=== PATIENT | male | born 1965 | race Caucasian/White ===

== ENCOUNTER 2018-07-06 00:55 | Inpatient (IN) | payer BC ==
[~2018-07-06] VITALS: Ht 190.5 cm; Wt 107.0 kg
[2018-07-06] VITALS (12 sets, daily range): BP systolic 129–153; BP diastolic 75–95
[~2018-07-06 00:55] MED LIST: ACET500T68 PO; PEDI1TAB5 PO
[2018-07-06] MEDS ORDERED: FAMOTIDINE 20 MG TAB PO ONE (08:10)
[2018-07-06] MEDS ORDERED: MIDAZOLAM 2 MG/2 ML VIAL IVP PRN (08:10)
[2018-07-06] MEDS ORDERED: NORMOSOL R SOLN(*) 1000 ML BAG 1,000 ML IV PRN (08:10)
[2018-07-06] MEDS ORDERED: LIDOCAINE/SOD BICARB 8.4% SYR ID ONE (08:10)
[2018-07-06] MEDS ORDERED: fentaNYL CITR 250 MCG/5 ML AMP ONE (08:14)
[2018-07-06] MEDS ORDERED: ONDANSETRON 4 MG/2 ML VIAL ONE (08:15)
[2018-07-06] MEDS ORDERED: DEXAMETHASONE SOD PHOS 10MG/ML ONE (08:15)
[2018-07-06] MEDS ORDERED: LIDOCAINE MPF 1% 5 ML VIAL ONE (08:15)
[2018-07-06] MEDS ORDERED: PROPOFOL EMUL(*) 10MG/ML 20 ML 20 ML ONE (08:15)
[2018-07-06] MEDS ORDERED: KETAMINE HCL 200 MG/20 ML MDV ONE (08:16)
[2018-07-06 08:30] LABS: PLATELET COUNT, AUTOMATED 246 K/uL (150-450)
[2018-07-06] MEDS ORDERED: HALOPERIDOL LACT 5 MG/ML VIAL IM ONE (08:44)
[2018-07-06] MEDS ORDERED: ceFAZolin(*) 2GM/D5W 50ML 50 ML IVPB ONE (08:50)
[2018-07-06] MEDS ORDERED: SUGAMMADEX SOD 200 MG/2 ML SDV ONE (08:57)
[2018-07-06] MEDS ORDERED: PROPOFOL(*)1000 MG/100 ML VIAL 100 ML ONE (09:06)
[2018-07-06] MEDS ORDERED: REMIFENTANIL HCL 1 MG VIAL ONE ×4 (09:06→12:47)
[2018-07-06] MEDS ORDERED: BACITRACIN OINT 15 GM TUBE TP ONE (09:33)
[2018-07-06] MEDS ORDERED: LIDO/EPI 1% MDV 1:100,000 20ML INFIL ONE ×2 (09:34→10:36)
[2018-07-06] MEDS ORDERED: ROCURONIUM BROM 10 MG/ML 10 ML ONE (09:55)
[2018-07-06] MEDS ORDERED: HYDROmorphone HCL 2 MG/ML SDV ONE ×2 (10:19→13:39)
[2018-07-06] MEDS ORDERED: OXYMETAZOLINE SPRAY 15 ML BTL ONE ×2 (10:26→10:28)
[2018-07-06] MEDS ORDERED: PROPOFOL EMUL(*) 10MG/ML 20 ML 40 ML ONE (11:26)
[2018-07-06] MEDS ORDERED: ACETAMINOPHEN 325 MG TAB PO PRN (13:20)
--- NOTE | 2018-07-06 13:20 | Post Operative Note ---
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 direct laryngoscopy and biopsy left base of tongue 2. bilateral tonsillectomy 3. left selective neck dissection, levels II - IV Specimen Removed:(Maybe N/A): 1. base of tongue biopsy 2. bilateral tonsils 3. left selective neck dissection, levels II -IV Complications: none Fluids Estimated Blood Loss: 250 ml JAYNE HSU JR, MD Jul 06, 2018 13:20
[2018-07-06] MEDS ORDERED: fentaNYL CITR 100 MCG/2 ML AMP ONE ×2 (13:38→13:53)
[2018-07-06] MEDS: ONDANSETRON 4 MG ODT TABDP SL PRN ×2 (15:22→21:06)
[2018-07-06] MEDS: LR(*) 1000 ML BAG 1,000 ML IV PRN (15:24)
[2018-07-06] MEDS: MORPHINE 2 MG/ML SYR IVP PRN ×2 (16:16→21:07)
[2018-07-06] MEDS: LIDOCAINE 2% VISC SLN 15ML UDC PO PRN (16:41)
[2018-07-06] MEDS: PROMETHAZINE 25 MG/ML 1 ML AMP IVP PRN (17:17)
[2018-07-06] MEDS: ceFAZolin(*) 1 GM VIAL 1 GM in NS(*) 0.9% 100 ML ADDVANT BAG 100 ML IVPB SCH (17:46)
[2018-07-06] MEDS: BACITRACIN/POLYMY B OINT 15 GM TP SCH (21:09)
[2018-07-07] VITALS (7 sets, daily range): BP systolic 133–146; BP diastolic 68–89; Ht 190.5 cm; Wt 107.0 kg
[2018-07-07] MEDS: ceFAZolin(*) 1 GM VIAL 1 GM in NS(*) 0.9% 100 ML ADDVANT BAG 100 ML IVPB SCH ×3 (02:19→18:14)
[2018-07-07] MEDS: LR(*) 1000 ML BAG 1,000 ML IV PRN (02:19)
[2018-07-07] MEDS: ONDANSETRON 4 MG ODT TABDP SL PRN ×2 (07:55→18:56)
[2018-07-07] MEDS: BACITRACIN/POLYMY B OINT 15 GM TP SCH ×2 (09:19→20:17)
--- NOTE | 2018-07-07 09:38 | ENT Progress Note ---
Subjective Progress Notes Subjective Patient POD #1 s/p tonsillectomy, DL, left SND. Nausea overnight. Doing better this am. Aislinn clears. Physical Exam Vital Signs Date Time Temp Pulse Resp B/P (MAP) Pulse Ox O2 Delivery O2 Flow Rate FiO2 07/07/18 08:02 91 Room Air 07/07/18 07:10 98.7 65 18 134/68 (90) 2.0 Intake and Output 07/07/18 06:58 Intake Total 4883 ml Output Total 3590 ml Balance 1293 ml Intake Oral 750 ml IV Total 4133 ml Output Urine Total 2150 ml Emesis 1100 ml Drainage Total 65 ml Estimated Blood Loss 250 ml Other 25 ml # Voids 4 # Emeses 1 General Appearance: Alert, No Acute Distress Neuro: Other (CN 7, XI intact) ENT: Moist Mucous Membranes, Other (no bleed) Neck: Other (sutures intact, TANISHA with ss output, no collection) Result Diagram: 07/06/18 0826 Assessment and Plan Problems: (1) 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 Saline lock IV. Cont. abx. OOB. Plan discharge home tomorrow. Time Spent: < 30 min Exam Sepsis Risk: No Definite Risk JAYNE HSU JR, MD Jul 07, 2018 09:38
[2018-07-07] MEDS: LIDOCAINE 2% VISC SLN 15ML UDC PO PRN (14:41)
--- NOTE | 2018-07-07 15:50 | OPERATIVE REPORT 1 ---
EVENT DATE: July 06, 2018 SURGEON: Jason Sahni MD ANESTHESIOLOGIST: Kade Barone MD ANESTHESIA: TIVA ASSEMBLER ARRANGER: Kennedi Adorno PROCEDURES PERFORMED 1. Direct laryngoscopy with biopsy of left tongue base. 2. Bilateral tonsillectomy. 3. Left selective neck dissection levels 2 through 4. PREOPERATIVE DIAGNOSES 1. Squamous cell carcinoma metastatic to the neck with unknown primary. 2. Abnormal PET scan of the head and neck. POSTOPERATIVE DIAGNOSES 1. Squamous cell carcinoma metastatic to the neck with unknown primary. 2. Abnormal PET scan of the head and neck. INDICATIONS Please refer to the preoperative note. DESCRIPTION OF PROCEDURE The patient was positively identified in the preoperative area. He was accompanied there by his . Risks again explained included, but were not limited to bleeding, infection, injury to the lip, dentition, oral cavity, pharynx, larynx, injury to vascular and/or nervous structures of the neck, not limited to the internal jugular vein, carotid artery, vagus, hypoglossal, lingual, marginal mandibular, and accessory nerves, chyle leak, and those associated with anesthesia. He acknowledged understanding of those risks. He was then brought back to the operative suite, laid supine on the operative table, and anesthesia was administered. Once asleep, the patient was positioned and prepped and draped in the usual sterile fashion. I began with a bimanual exam of the patient's oral cavity and pharynx. His base of tongue was soft. His left tonsil was firm to palpation. The right tonsil was soft. The floor of mouth was soft. I then introduced the Dedo direct laryngoscope. The oral cavity, bilateral palatine tonsils, base of tongue, vallecula, bilateral piriform sinuses, endolarynx, and esophageal inlet were clear. Fisher Eel Spear biopsies were taken of the patient's left base of tongue in the absence of an obvious lesion given the patient's PET CT findings. Given the patient's left tonsil was firm to palpation in the absence of a visible or palpable lesion on the left tongue base, I proceeded with the tonsillectomy. The right tonsil was grasped with a curved Allis forceps and carefully dissected from the lateral pharyngeal wall with Bovie electrocautery, and in a similar fashion, the contralateral tonsil was removed. Hemostasis was attempted with suction Bovie electrocautery. Due to persistent bleeding, Fibrillar Surgicel was packed into the bilateral tonsillar fossae, and the tonsillar pillars were oversewn with Vicryl mattress sutures. Hemostasis was obtained. The patient was then repositioned for the neck dissection. A favorable neck crease was found, and a 10 cm incision was planned. Approximately 2 mL of 1% lidocaine with epinephrine were infiltrated. The aforementioned incision was then made with a 15 blade. The underlying subcutaneous tissue was then dissected with Bovie electrocautery. The platysma muscles were encountered and divided. Subplatysmal flaps were elevated superiorly and inferiorly. I incised the fascia overlying the sternocleidomastoid on its anterior border. The sternocleidomastoid muscle was then retracted posteriorly. The dissection was continued to the posterior border of the sternocleidomastoid muscle, indicating the posterior margin. I then dissected deeply onto the root of the neck. The cervical rootlets were identified and preserved. The lymph node packet was then rotated medially. I then turned my attention to the inferior margin of the dissection. The omohyoid muscle was divided. Care was taken inferiorly to dissect, clamp, and tie the extent of the dissection to minimize risk of a chyle leak. I then turned my attention superiorly. The accessory nerve was identified and preserved. The node packet was then brought anteriorly to the larynx. Levels 2, 3, and 4 were divided and sent separately for permanent pathology. The wound bed was then copiously irrigated with normal saline solution. Valsalva maneuver was performed. Hemostasis was assumed. A flat TANISHA drain was placed and secured to the skin with a suture. The platysma was then reapproximated with interrupted chromic suture. The skin was then closed in a multilayer fashion. The patient was then turned to Anesthesia for emergence. Estimated blood loss for the entirety of the case was 250 mL. There were no complications. MTDD
--- NOTE | 2018-07-07 19:28 | Antimicrobial Stewardship ---
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 Reviewed for Drug Interaction: Yes Monitored for Toxicities: Yes Clinically stable/improving: Yes IV to PO Opportunity: Yes Determine cumulative duration: Individualized Comment Due to possible fistula development treatment may be longer than 7 days. JOANIE VERNON Jul 07, 2018 19:28
[2018-07-07] MEDS: PROMETHAZINE 25 MG/ML 1 ML AMP IVP PRN (20:24)
[2018-07-08] MEDS: ceFAZolin(*) 1 GM VIAL 1 GM in NS(*) 0.9% 100 ML ADDVANT BAG 100 ML IVPB SCH ×2 (02:06→09:53)
[2018-07-08] MEDS ORDERED: POLPT TP (07:32)
[2018-07-08] MEDS ORDERED: LIDO15SO2 PO (07:32)
--- NOTE | 2018-07-08 07:35 | Hospitalist Depart ---
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 Aislinn regular diet. Pain controlled. Discharge home on HD #2. Departure Weight (Pounds): 236 Condition: Improved Discharge: Home Discharge Code Status: Full Code Time Spent: < 30 min Discharge Instructions Home Meds Active Scripts Oxycodone Hcl/Acetaminophen (PERCOCET 5-325 MG TABLET) 1 Each Tablet, 1 EACH PO Q6H PRN for PAIN for 7 Days, #10 TAB Prov:JAYNE HSU JR, MD 07/13/18 Lidocaine HCl VISCOUS 2% (Lidocaine Viscous) 2 % Solution, 15 ML PO PRN PRN for DISCOMFORT for 7 Days, #500 ML Prov:JAYNE HSU JR, MD 07/08/18 Bacitracin/Polymyxin (BACITRACIN-POLYMYXIN OINTMENT) 0.9 Gm Oint, 0 GM TP BID for 7 Days, #1 TUBE Prov:JAYNE HSU JR, MD 07/08/18 Discontinued Reported Medications Acetaminophen (TYLENOL EXTRA STRENGTH) 500 Mg Tablet, 2 TAB PO Q6H PRN for PAIN, TAB 07/03/18 Diet: Regular Activity: No Heavy Lifting, No Exertion Special Instructions: Patient has scheduled follow-up with [facility] medical oncology in [place] next week. ENT RN will call with radiation oncology appt. Venous Thromboembolism Antithrombotics Is Pt On Any Antithrombotics?: No JAYNE HSU JR, MD Jul 08, 2018 07:35
[2018-07-08 07:36] VITALS: BP 137/86
[2018-07-08] MEDS: BACITRACIN/POLYMY B OINT 15 GM TP SCH (08:38)
[2018-07-08] MEDS: ONDANSETRON 4 MG ODT TABDP SL PRN (09:54)
[2018-07-08 11:37] VITALS: BP 131/88
[2018-07-13] MEDS ORDERED: OXYC-865 PO (13:50)
== END 2018-07-08 11:40 | disposition home or self-care (01) | DRG 824 ==
LOC: OR 00:55 → MED 15:20 → OBSVTOIN 15:20
PROVIDERS: ADMIT Otolaryngology; ATTEND Otolaryngology
PROC: 0CTPXZZ Resection of Tonsils, External Approach (ICD-10-PCS; principal; 2018-07-06 09:55)
PROC: 07B20ZX Excision of Left Neck Lymphatic, Open Approach, Diagnostic (ICD-10-PCS; 2018-07-06 09:55)
PROC: 0CBM8ZX Excision of Pharynx, Via Natural or Artificial Opening Endoscopic, Diagnostic (ICD-10-PCS; 2018-07-06 09:55)
DX: C77.0 Secondary and unspecified malignant neoplasm of lymph nodes of head, face and neck (principal); C79.89 Secondary malignant neoplasm of other specified sites; C80.1 Malignant (primary) neoplasm, unspecified; Z88.0 Allergy status to penicillin
CPT/HCPCS: 36415; 85025; 88305; 88344; J0690; J1100; J1170; J1630; J2001; J2250; J2270; J2405; J2550; J2704; J3010; J3490; J7050; J7120; S0119